=== PATIENT | female | born 1935 | race Caucasian/White ===

== ENCOUNTER 2019-06-16 07:32 | Day surgery (SDC) | payer OTHER, BC ==
[~2019-06-16] VITALS: Ht 170.2 cm; Wt 83.5 kg
[2019-06-16 08:42] VITALS: BP 140/79
[2019-06-16 11:49] VITALS: BP 118/64
== END 2019-06-16 11:15 | disposition home or self-care (01) ==
LOC: GI 07:32 → OR 10:00 → GI 11:15 → OR 12:00
DX: K22.4 Dyskinesia of esophagus (principal); K21.9 Gastro-esophageal reflux disease without esophagitis; Z88.5 Allergy status to narcotic agent; Z79.899 Other long term (current) drug therapy; G47.33 Obstructive sleep apnea (adult) (pediatric); Z90.49 Acquired absence of other specified parts of digestive tract; Z90.710 Acquired absence of both cervix and uterus; Z98.890 Other specified postprocedural states
CPT/HCPCS: 43235; J1200; J1610; J2250; J2310; J3010; J3490